=== PATIENT | female | born 2000 | race Caucasian/White ===

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

== ENCOUNTER 2018-03-24 16:48 | Observation (INO) | payer SELFPAY ==
[2018-03-24 17:38] LABS: Appearance CLOUDY (CLEAR); Bilirubin NEGATIVE (NEGATIVE); Blood NEGATIVE Ery/ul (0-5); Glucose NEGATIVE (NEGATIVE); Ketones NEGATIVE (NEGATIVE); Leukocyte Esterase 1+ (NEGATIVE); Nitrite POSITIVE (NEGATIVE); Protein,Urine Dip TRACE (Negative); Urobilinogen NORMAL mg/dL (0-1)
[2018-03-24 17:39] LABS: Bacteria MANY /HPF (NEGATIVE); Epithelial Cells MODERATE /HPF (FEW); RBC 0-2 /HPF (0-2); WBC 15-25 /HPF (0-5)
[2018-03-24 17:49] LABS: Amphetamine,Urine NEGATIVE (NEGATIVE); Barbiturate,Urine NEGATIVE (NEGATIVE); Benzodiazepine,Urine NEGATIVE (NEGATIVE); Cocaine,Urine NEGATIVE (NEGATIVE); Methadone,Urine NEGATIVE (NEGATIVE); Opiate,Urine NEGATIVE (NEGATIVE); PCP,Urine NEGATIVE (NEGATIVE); THC,Urine NEGATIVE (NEGATIVE)
[2018-03-24] MEDS ORDERED: Lactated Ringers 1,000 ML IV ONE (18:03)
[2018-03-24] MEDS ORDERED: ROCEPHIN 1 Gm-D5w 50 ml Bag** 1 G/50 ML IVPB IV ONE (18:13)
[2018-03-24] MEDS: Lactated Ringers 1,000 ML IV SCH (19:40)
[2018-03-24] MEDS ORDERED: BRETHINE 1 MG/ML SQ ONE (20:54)
[2018-03-25] MEDS: Lactated Ringers 1,000 ML IV SCH (03:51)
[2018-03-25 09:05] VITALS: BP 108/57; PULSE 88
[2018-03-25] MEDS ORDERED: ROCEPHIN 1 Gm-D5w 50 ml Bag** 1 G/50 ML IVPB IV SCH (18:04)
== END 2018-03-25 09:00 | disposition home or self-care (01) ==
LOC: ED 16:48 → OB 16:48 → UNDOADMOB 16:54 → OB 16:54 → UNDODISOB 03-25 09:00
PROVIDERS: ADMIT Family Medicine; ATTEND Family Medicine
DX: Z34.90 Encounter for supervision of normal pregnancy, unspecified, unspecified trimester (principal)
CPT/HCPCS: 80307; 81000; 87077; 87086; 87186; G0378; 96372; 99282; J0696

== ENCOUNTER 2018-03-27 12:01 | Observation (INO) | payer MEDICAID ==
[2018-03-27] MEDS ORDERED: Rocephin 1000 MG INJ IM ONE (13:29)
[2018-03-27] MEDS ORDERED: Lactated Ringers 1,000 ML IV SCH (13:30)
[2018-03-27] MEDS ORDERED: XYLOCAINE 1% HCL 20 ML MDV IJ PRN (13:37)
[2018-03-27 15:09] VITALS: BP 124/60; PULSE 85
== END 2018-03-27 15:10 | disposition home or self-care (01) ==
LOC: OB 12:01
PROVIDERS: ADMIT Family Medicine; ATTEND Family Medicine
DX: Z34.83 Encounter for supervision of other normal pregnancy, third trimester (principal)
CPT/HCPCS: 96372; G0378; J0696

== ENCOUNTER 2018-04-07 12:05 | Observation (INO) | payer MEDICAID ==
[2018-04-07] MEDS ORDERED: Sodium Chloride 0.9% 1000 ML 1,000 ML ONE (12:11)
[2018-04-07] MEDS ORDERED: Sodium Chloride 0.9% 1000 ML 1,000 ML IV STA (12:12)
--- NOTE | 2018-04-07 12:19 | ERPHSYRPT ---
- History of Present Illness Time Seen by Provider: 04/07/18 12:12 Source: patient, EMS Physician History: 17-year-old white female brought by medics with complaint that she was out for a walk suddenly passed out patient arrives with complaint of lower abdominal pain. Patient is alert oriented she states that she is 4 para 3 She states she is almost 37 weeks . Past medical history is negative. Patient denies any vaginal bleeding denies chest pain. Timing/Duration: today (just prior to arrival) Severity: moderate Modifying Factors: Improves With: nothing Associated Symptoms: abdominal pain, No nausea, No vomiting, No shortness of breath, No heartburn, No diaphoresis, No chest pain, No fever, No headaches, No malaise, No rash, No syncope, No seizure, No weakness Allergies/Adverse Reactions: No Known Drug Allergies Allergy (Verified 03/24/18 17:37) Home Medications: No Reportable Medications [No Reported Medications] 03/24/18 [History] Hx Tetanus, Diphtheria Vaccination/Date Given: Yes Hx Influenza Vaccination/Date Given: No Hx Pneumococcal Vaccination/Date Given: No - Review of Systems Constitutional: No Fever, No Chills Eyes: No Symptoms Ears, Nose, & Throat: No Symptoms Respiratory: No Cough, No Dyspnea Cardiac: Syncope Abdominal/Gastrointestinal: Abdominal Pain (lower abdominal pain) Genitourinary Symptoms: (37 weeks EGA) Musculoskeletal: No Back Pain, No Neck Pain Skin: No Rash Neurological: No Dizziness, No Focal Weakness, No Sensory Changes Psychological: No Symptoms Endocrine: No Symptoms All Other Systems: Reviewed and Negative - Past Medical History Pertinent Past Medical History: Yes (tonsillectomy, SVD2) Neurological History: No Pertinent History ENT History: No Pertinent History Cardiac History: No Pertinent History Respiratory History: No Pertinent History Endocrine Medical History: No Pertinent History Musculoskeletal History: No Pertinent History GI Medical History: No Pertinent History History: No Pertinent History Psycho-Social History: No Pertinent History Female Reproductive Disorders: No Pertinent History - Past Surgical History Past Surgical History: Yes (tonsillectomy) Neuro Surgical History: No Pertinent History Cardiac: No Pertinent History Respiratory: No Pertinent History Gastrointestinal: No Pertinent History Genitourinary: No Pertinent History Musculoskeletal: No Pertinent History Female Surgical History: No Pertinent History Other Surgical History: Tonisiectomy - Social History Smoking Status: Current every day smoker How long have you smoked: years 2 Exposure to second hand smoke: Yes Drug Use: none Patient Lives Alone: No - Physical Exam General Appearance: other (well developed well nourished white female pale) Eye Exam: PERRL/EOMI, eyes nml inspection Ears, Nose, Throat Exam: normal ENT inspection, TMs normal, pharynx normal, moist mucous membranes Neck Exam: normal inspection, non-tender, supple, full range of motion Respiratory Exam: normal breath sounds, lungs clear, No respiratory distress Cardiovascular Exam: regular rate/rhythm, normal heart sounds, normal peripheral pulses Gastrointestinal/Abdomen Exam: soft, tenderness (lower abdominal pain), distention (gravid abdomen) Back Exam: normal inspection, normal range of motion, No CVA tenderness, No vertebral tenderness Extremity Exam: normal inspection, normal range of motion, pelvis stable Neurologic Exam: alert, oriented x 3, cooperative, metal bumper II-XII nml as tested, normal mood/affect, nml cerebellar function, nml station & gait, sensation nml, No motor deficits Skin Exam: normal color, warm, dry, No rash SpO2 Interpretation: normal - Course Nursing assessment & vital signs reviewed: Yes EKG Interpreted by Me: RATE (89 bpm), Other (EKG: Sinus arrhythmia, 89 bpm, normal axis, no acute ST or T wave changes noted.) Ordered Tests: Active Orders 24 hr Category Date Time Status EKG-ER Only STAT Care 04/07/18 12:12 Active IV Insertion STAT Care 04/07/18 12:12 Active AMYLASE Stat Lab 04/07/18 12:12 Ordered CBC W DIFF Stat Lab 04/07/18 12:12 Ordered CMP Stat Lab 04/07/18 12:12 Ordered LIPASE Stat Lab 04/07/18 12:12 Ordered Medication Summary Generic Name Dose Route Start Last Admin Trade Name Freq PRN Reason Stop Dose Admin Sodium Chloride 1,000 mls @ 999 mls/hr 04/07/18 12:12 Sodium Chloride 0.9% 1000 Ml IV 04/07/18 13:12 .Q1H1M STA - Progress Progress: improved Progress Note: 04/07/18 12:17 This is a 17-year-old white female 4 para 3 with who is 37 weeks estimated gestational age, Patient is brought by medics with complaint of syncopal episode just prior to arrival patient states she was out for a walk and then passed out, On arrival patient is somewhat pale in appearance vitals are stable. Patient is alert oriented 3 HEENT within normal limits neck is supple lungs are clear heart is regular. Abdomen is gravid mild tenderness with palpation lower abdomen patient with cramping. extremities full range of motion pulses equal symmetrical 2 over 4. Neuro the patient alert oriented 3 cranial nerves II through XII intact. Patient with sinus arrhythmia [address] or T wave changes on EKG. Impression 1syncope. 2. 37 weeks EGA patient with abdominal cramping rule out labor. Plan I've discussed case with Dr. Boykin IV has been placed patient has been started on normal saline CBC CMP has been ordered EKG has been obtained. Patient appears stable enough to go to labor and delivery Will transfer patient to labor and delivery. . . - Departure Time of Disposition: 12:19 Departure Disposition: Observation Clinical Impression: , r/o labor Syncope Qualifiers: Syncope type: unspecified Qualified Code(s): R55 - Syncope and collapse Abdominal pain Qualifiers: Abdominal location: lower abdomen, unspecified Qualified Code(s): R10.30 - Lower abdominal pain, unspecified Qualifiers: Weeks of gestation: 37 weeks Qualified Code(s): Z3A.37 - 37 weeks gestation of Condition: Fair Critical Care Time: No Referrals: RASHAD BOYKIN MD [Primary Care Provider] -
[2018-04-07 12:33] LABS: BASOPHIL % 0.1 % (0.0-0.4); Basophil (Absolute #) 0.01 (0-0.4); Eosinophil % 2.2 % (0.00-5.0); Eosinophil (Absolute #) 0.17 (0-0.5); Granulocyte Absolute (ANC) 5.87 (1.4-6.9); Granulocytes % 75.3 % (36.0-66.0); Hematocrit 32.7 % (35-47); Hemoglobin 10.9 gm/dl (12.0-16.0); Lymphocyte (Absolute #) 1.21 (1.0-4.6); Lymphocytes % 15.5 % (24.0-44.0); Mean Cell Volume 90.8 fl (78-100); Mean Corpuscular Hgb Concent. 33.3 g/dl (32-36); Mean Platelet Volume 11.8 fl (6-9.5); Monocyte (Absolute #) 0.54 (0.0-1.3); Monocytes % 6.9 % (0.0-12.0); Platelet Count 165 K/mm3 (150-450); Red Cell Distribution Width 15.2 % (11.5-14.0); White Blood Count 7.8 K/mm3 (4.0-10.5)
[2018-04-07 12:34] LABS: Mean Corpuscular Hemoglobin 30.2 pg (26-32)
[2018-04-07 12:39] VITALS: BP 117/59; PULSE 97
[2018-04-07 12:49] LABS: ALBUMIN 3.5 g/dL (3.5-5.0); ALKALINE PHOSPHATASE 91 U/L (38-126); AMYLASE 57 U/L (30-110); ANION GAP 12.3 MEQ/L (5-15); BLOOD UREA NITROGEN 12 mg/dL (7-17); CHLORIDE 109 mmol/L (98-107); Calcium 8.8 mg/dL (8.4-10.2); Carbon Dioxide 20 mmol/L (22-30); Creatinine 1 0.54 mg/dL (0.52-1.04); Glucose 115 mg/dL (74-106); LIPASE 33 U/L (23-300); Potassium 3.9 mmol/L (3.5-5.1); SGOT/AST 22 U/L (14-36); SGPT/ALT 28 U/L (0-35); SODIUM 137 mmol/L (137-145); Total Protein 6.6 g/dL (6.3-8.2)
== END 2018-04-07 17:00 | disposition home or self-care (01) ==
LOC: ED 12:05 → OB 12:31
PROVIDERS: ADMIT Family Medicine; ATTEND Family Medicine
DX: Z34.83 Encounter for supervision of other normal pregnancy, third trimester (principal)
CPT/HCPCS: 36415; 80053; 82150; 83690; 83986; 85025; 93005; 96360; 99285; G0378

== ENCOUNTER 2018-04-18 18:59 | Observation (INO) | payer MEDICAID ==
[2018-04-18 20:51] LABS: Appearance CLEAR (CLEAR); Bilirubin NEGATIVE (NEGATIVE); Blood NEGATIVE Ery/ul (0-5); Glucose NEGATIVE (NEGATIVE); Ketones NEGATIVE (NEGATIVE); Leukocyte Esterase NEGATIVE (NEGATIVE); Nitrite NEGATIVE (NEGATIVE); Protein,Urine Dip NEGATIVE (Negative); Specific Gravity 1.005 (1.005-1.025); Urobilinogen NORMAL mg/dL (0-1)
[2018-04-18] MEDS ORDERED: Lactated Ringers 1,000 ML IV ONE (22:00)
[2018-04-18] MEDS ORDERED: Lactated Ringers 1,000 ML IV SCH (23:00)
[2018-04-19 00:30] VITALS: BP 115/65; PULSE 72; O2SAT 99
== END 2018-04-19 00:15 | disposition home or self-care (01) ==
LOC: UNDOADMOB 18:59 → OB 18:59 → UNDODISOB 04-19 00:15
PROVIDERS: ADMIT Family Medicine; ATTEND Family Medicine
DX: Z34.83 Encounter for supervision of other normal pregnancy, third trimester (principal)
CPT/HCPCS: 81002; G0378

== ENCOUNTER 2018-04-27 04:39 | Inpatient (IN) | payer OTHER ==
[~2018-04-27 04:39] MED LIST: OMNIPEN 1GM / NaCl 100ML 100 ML IV SCH; OMNIPEN 2 GM / NACL 100ML 100 ML IV ONE; OMNIPEN 2 GM IV SCH; PITOCIN 30 UNITS/ LR 500 ML 500 ML IV SCH; TYLENOL EXTRA STRENGTH 500 MG PO PRN
[2018-04-27 05:43] LABS: Granulocyte Absolute (ANC) 5.17 (1.4-6.9); Hematocrit 33.9 % (35-47); Hemoglobin 11.3 gm/dl (12.0-16.0); Mean Cell Volume 89.7 fl (78-100); Mean Corpuscular Hgb Concent. 33.3 g/dl (32-36); Mean Platelet Volume 12.2 fl (6-9.5); Platelet Count 167 K/mm3 (150-450); Red Blood Count 3.78 M/mm3 (4.1-5.4); Red Cell Distribution Width 15.5 % (11.5-14.0); White Blood Count 7.4 K/mm3 (4.0-10.5)
[2018-04-27 05:54] LABS: Mean Corpuscular Hemoglobin 29.8 pg (26-32)
[2018-04-27] MEDS: Lactated Ringers 1,000 ML IV SCH ×2 (05:55→17:17)
[2018-04-27 06:52] LABS: Amphetamine,Urine NEGATIVE (NEGATIVE); Barbiturate,Urine NEGATIVE (NEGATIVE); Benzodiazepine,Urine NEGATIVE (NEGATIVE); Cocaine,Urine NEGATIVE (NEGATIVE); Methadone,Urine NEGATIVE (NEGATIVE); Opiate,Urine NEGATIVE (NEGATIVE); PCP,Urine NEGATIVE (NEGATIVE); THC,Urine NEGATIVE (NEGATIVE)
[2018-04-27 08:33] LABS: ATYPICAL LYMPHS 1 %; Eosinophil 4 % (0.00-3.0); Lymphocytes 14 % (24-44); Monocyte 3 % (0.0-12.0); Neutrophils 78 % (36.0-66.0); Platelet Estimate NORMAL (NORMAL); Total Cells Counted 100
[2018-04-27 08:34] LABS: ANISOCYTOSIS 1+; Polychromasia RARE
[2018-04-27] MEDS: OMNIPEN 1GM / NaCl 100ML 100 ML IV SCH ×3 (09:53→17:55)
[2018-04-27] MEDS ORDERED: OB EPIDURAL NAROPIN/SUFENTANIL IN NACL EPIDURAL PRN (12:55)
[2018-04-27] MEDS ORDERED: Lactated Ringers 1,000 ML IV ONE (12:55)
[2018-04-27] MEDS ORDERED: Ephedrine Sulfate 50 MG/ML IV PRN (12:55)
[2018-04-27 14:04] VITALS: O2SAT 99
[2018-04-27] MEDS: Colace 100 MG PO SCH (22:00)
[2018-04-27] MEDS ORDERED: LANSINOH 40 GM TOP PRN (22:36)
[2018-04-27] MEDS ORDERED: CORTISONE 1% CREAM TP PRN (22:36)
[2018-04-27] MEDS ORDERED: Ambien 10 MG PO PRN (22:36)
[2018-04-27] MEDS ORDERED: Mylicon 80MG PO PRN (22:36)
[2018-04-27] MEDS ORDERED: NORCO 5/325 MG PO PRN (22:36)
[2018-04-27] MEDS ORDERED: TUCKS TP PRN (22:36)
[2018-04-27] MEDS ORDERED: Dermoplast Spray ONE (22:42)
[2018-04-27] MEDS: MOTRIN 400 MG PO PRN (22:45)
[2018-04-27] MEDS ORDERED: Dermoplast Spray TP PRN (22:46)
[2018-04-28] MEDS: MOTRIN 400 MG PO PRN ×2 (05:33→13:51)
[2018-04-28 06:25] LABS: BASOPHIL % 0.3 % (0.0-0.4); Basophil (Absolute #) 0.02 (0-0.4); Eosinophil % 3.2 % (0.00-5.0); Eosinophil (Absolute #) 0.22 (0-0.5); Granulocyte Absolute (ANC) 4.45 (1.4-6.9); Granulocytes % 65.7 % (36.0-66.0); Hematocrit 28.5 % (35-47); Hemoglobin 9.3 gm/dl (12.0-16.0); Lymphocyte (Absolute #) 1.25 (1.0-4.6); Lymphocytes % 18.4 % (24.0-44.0); Mean Cell Volume 91.6 fl (78-100); Mean Corpuscular Hemoglobin 29.9 pg (26-32); Mean Corpuscular Hgb Concent. 32.6 g/dl (32-36); Mean Platelet Volume 12.7 fl (6-9.5); Monocyte (Absolute #) 0.84 (0.0-1.3); Monocytes % 12.4 % (0.0-12.0); Platelet Count 139 K/mm3 (150-450); Red Blood Count 3.11 M/mm3 (4.1-5.4); Red Cell Distribution Width 15.5 % (11.5-14.0); White Blood Count 6.8 K/mm3 (4.0-10.5)
[2018-04-28] MEDS: FERREX 150 PO SCH (13:51)
[2018-04-28] MEDS: Colace 100 MG PO SCH (13:51)
[2018-04-29] MEDS: FERREX 150 PO SCH (09:50)
[2018-04-29] MEDS: Colace 100 MG PO SCH (09:50)
--- NOTE | 2018-04-29 12:03 | PCM.DS ---
Discharge Summary Date of Admission: 04/27/18 12:16 Admitting Physician: RASHAD BOYKIN Consults: Consults on Case 04/27/18 12:56 Notify Anesthesia Provider PRN 04/27/18 22:36 Notify Physician ROUTINE Primary Care Provider: RASHAD BOYKIN Allergies Allergies No Known Drug Allergies Allergy (Verified 04/27/18 06:22) Hospital Summary - Hospital Course Hospital Course: patient had elective induction at 39 wks, delivered a viable male . no complications. - Vitals & Intake/Output Vital Signs: Vital Signs Temperature 98.1 F 04/29/18 08:00 Pulse Rate 86 04/29/18 08:00 Respiratory Rate 20 04/29/18 08:00 Blood Pressure 119/66 04/29/18 08:00 O2 Sat by Pulse Oximetry 99 04/27/18 13:30 Oxygen-Last Documented O2 Percentage 100% Intake & Output: Intake & Output 04/27/18 04/28/18 04/29/18 04/30/18 11:59 11:59 11:59 11:59 Intake Total 4567 1200 Output Total 2000 Balance 2567 1200 Weight 82.1 kg - Lab Result Diagrams: 04/28/18 05:16 Micro Results-Entire Visit: Microbiology 04/27/18 15:30 Urine Culture - Final Catherized NO GROWTH Discharge Exam General Appearance: no apparent distress, alert Respiratory Exam: normal breath sounds, lungs clear, No respiratory distress Cardiovascular Exam: regular rate/rhythm, normal heart sounds Gastrointestinal/Abdomen Exam: soft, No tenderness, No mass Extremity Exam: normal inspection, normal range of motion Final Diagnosis/Problem List - Final Discharge Diagnosis/Problem (1) Vaginal delivery Current Visit: No Status: Acute - Discharge Disposition: Home, Self-Care Condition: Stable Prescriptions: No Action No Reportable Medications [No Reported Medications] Follow up with: RASHAD BOYKIN MD [Primary Care Provider] - 1 Week
[2018-04-29] MEDS: MOTRIN 400 MG PO PRN (12:26)
[2018-04-29 13:50] VITALS: BP 135/69; PULSE 91
== END 2018-04-29 13:30 | disposition home or self-care (01) | DRG 775 ==
LOC: OB 04:39 → OBSVTOIN 12:16
PROVIDERS: ADMIT Family Medicine; ATTEND Family Medicine
PROC: 10E0XZZ Delivery of Products of Conception, External Approach (ICD-10-PCS; principal; 2018-04-27)
DX: O80 Encounter for full-term uncomplicated delivery (principal); Z3A.39 39 weeks gestation of pregnancy; Z37.0 Single live birth
CPT/HCPCS: 36415; 80307; 81003; 85025; 87086; G0378; J0290; J2590; J2795; A9270-GY

== ENCOUNTER 2018-07-02 23:02 | Emergency (ER) | payer OTHER ==
[2018-07-02] MEDS ORDERED: Zofran 4 MG/2 ML VIAL IV ONE (23:54)
[2018-07-02] MEDS ORDERED: Sodium Chloride 0.9% 1000 ML 1,000 ML IV STA (23:54)
[2018-07-03] MEDS ORDERED: SUBLIMAZE 100 MCG/2 ML IV ONE (00:06)
[2018-07-03] MEDS ORDERED: Zofran 4 MG/2 ML VIAL ONE (00:06)
[2018-07-03] MEDS ORDERED: Sodium Chloride 0.9% 1000 ML 1,000 ML ONE (00:06)
[2018-07-03] MEDS ORDERED: PROTONIX 40 MG IV IV ONE ×2 (00:11→00:35)
--- NOTE | 2018-07-03 00:11 | ERPHSYRPT ---
- History of Present Illness Time Seen by Provider: 07/02/18 23:35 Historian: patient Exam Limitations: clinical condition Patient Subjective Stated Complaint: pt states she began having abd pain half and hour to an hour after eating supper. Triage Nursing Assessment: pt alert and oriented, answers questions approp. pt ambulatory with steady gait noted. respirations nonlabored with lungs cta. pt tearful at times, holding abd. abd soft, nontender to light palpation. bowel sounds present x4. Physician History: PATIENT COMPLAINS OF EPIGASTRIC PAINS AFTER EATING DINNER 3 HOURS AGO. HAS ASSOCIATED NAUSEA. DENIES EMESIS, FEVER, URINARY SYMPTOMS Timing/Duration: today Activities at Onset: other (AFTER EATING STEAK) Quality: sharpness, stabbing Abdominal Pain Onset Location: epigastric Pain Radiation: no radiation Severity of Pain-Max: moderate Severity of Pain-Current: moderate Modifying Factors: Improves With: eating Associated Symptoms: denies symptoms Previous symptoms: no prior history Allergies/Adverse Reactions: No Known Drug Allergies Allergy (Verified 07/02/18 23:34) Hx Tetanus, Diphtheria Vaccination/Date Given: Yes Hx Influenza Vaccination/Date Given: No Hx Pneumococcal Vaccination/Date Given: No Immunizations Up to Date: Yes - Review of Systems Constitutional: No Fever, No Chills Eyes: No Symptoms Ears, Nose, & Throat: No Symptoms Respiratory: No Symptoms, No Cough, No Dyspnea Cardiac: No Chest Pain, No Edema, No Syncope Abdominal/Gastrointestinal: Abdominal Pain, No Nausea, No Vomiting, No Diarrhea Genitourinary Symptoms: No Symptoms, No Dysuria Musculoskeletal: No Symptoms, No Back Pain, No Neck Pain Skin: No Rash Neurological: No Dizziness, No Focal Weakness, No Sensory Changes Psychological: No Symptoms Endocrine: No Symptoms All Other Systems: Reviewed and Negative - Past Medical History Pertinent Past Medical History: No (tonsillectomy, SVD2) Neurological History: No Pertinent History ENT History: No Pertinent History Cardiac History: No Pertinent History Respiratory History: No Pertinent History Endocrine Medical History: No Pertinent History Musculoskeletal History: No Pertinent History GI Medical History: No Pertinent History History: No Pertinent History Psycho-Social History: No Pertinent History Female Reproductive Disorders: No Pertinent History - Past Surgical History Past Surgical History: Yes (tonsillectomy) Neuro Surgical History: No Pertinent History Cardiac: No Pertinent History Respiratory: No Pertinent History Gastrointestinal: No Pertinent History Genitourinary: No Pertinent History Musculoskeletal: No Pertinent History Female Surgical History: No Pertinent History Other Surgical History: Tonisiectomy - Social History Smoking Status: Current every day smoker How long have you smoked: 4yrs Exposure to second hand smoke: Yes Drug Use: none Patient Lives Alone: No - Female History Hx Last Menstrual Period: current Hx Now: No - Nursing Vital Signs Nursing Vital Signs: Initial Vital Signs Temperature 98.3 F 07/02/18 23:25 Pulse Rate 74 07/02/18 23:25 Respiratory Rate 20 07/02/18 23:25 Blood Pressure 139/84 07/02/18 23:25 O2 Sat by Pulse Oximetry 99 07/02/18 23:25 Pain Scale Pain Intensity 8 - Physical Exam General Appearance: mild distress Eye Exam: PERRL/EOMI, eyes nml inspection Ears, Nose, Throat Exam: normal ENT inspection, pharynx normal, moist mucous membranes Neck Exam: normal inspection, non-tender, supple, full range of motion Respiratory Exam: normal breath sounds, lungs clear, No respiratory distress Cardiovascular Exam: regular rate/rhythm, normal heart sounds Gastrointestinal/Abdomen Exam: soft, normal bowel sounds, No tenderness ( EPIGASTRIC AND RUQ TENDERNESS), No mass Back Exam: normal inspection, normal range of motion, No CVA tenderness, No vertebral tenderness Extremity Exam: normal inspection, normal range of motion, pelvis stable Neurologic Exam: alert, oriented x 3, cooperative, normal mood/affect, nml cerebellar function, sensation nml, No motor deficits Skin Exam: normal color, warm, dry SpO2: 99 Oxygen Delivery: Room Air Ordered Tests: Active Orders 24 hr Category Date Time Status Clean Catch Urine Specimen STAT Care 07/02/18 23:54 Active IV Insertion STAT Care 07/02/18 23:54 Active ABDOMEN AND PELVIS W CONTRAST [CT] Stat Exams 07/02/18 23:55 Ordered AMYLASE Stat Lab 07/02/18 23:54 Ordered CBC W DIFF Stat Lab 07/02/18 23:54 Ordered CMP Stat Lab 07/02/18 23:54 Ordered HCG,QUALITATIVE URINE Stat Lab 07/03/18 00:01 Ordered LIPASE Stat Lab 07/02/18 23:54 Ordered UA W/RFX UR CULTURE Stat Lab 07/03/18 00:01 Ordered Medication Summary Generic Name Dose Route Start Last Admin Trade Name Freq PRN Reason Stop Dose Admin Sodium Chloride 1,000 mls @ 500 mls/hr 07/02/18 23:54 07/03/18 00:07 Sodium Chloride 0.9% 1000 Ml IV 07/03/18 01:53 500 mls/hr .Q2H STA Administration Discontinued Medications Generic Name Dose Route Start Last Admin Trade Name [place] PRN Reason Stop Dose Admin Fentanyl Citrate 100 mcg 07/03/18 00:06 Sublimaze 100 Mcg/2 Ml IV 07/03/18 00:07 STAT ONE Fentanyl Citrate Confirm 07/03/18 00:16 Sublimaze 100 Mcg/2 Ml Administered 07/03/18 00:17 Dose 100 mcg .ROUTE .STK-MED ONE Sodium Chloride Confirm 07/03/18 00:06 Sodium Chloride 0.9% 1000 Ml Administered 07/03/18 00:07 Dose 1,000 mls @ ud .ROUTE .STK-MED ONE Ondansetron HCl 4 mg 07/02/18 23:54 07/03/18 00:07 Zofran 4 Mg/2 Ml Vial IV 07/02/18 23:55 4 mg STAT ONE Administration Ondansetron HCl Confirm 07/03/18 00:06 Zofran 4 Mg/2 Ml Vial Administered 07/03/18 00:07 Dose 4 mg .ROUTE .STK-MED ONE Pantoprazole Sodium 40 mg 07/03/18 00:11 Protonix 40 Mg Iv IV 07/03/18 00:12 STAT ONE - Progress Progress Note: 07/03/18 00:10 IV NORMAL SALINE 500ML/HR, ZOFRAN 4MG, FENTANYL 0.1MG IV Counseled pt/family regarding: lab results, diagnosis, need for follow-up, rad results - Departure Time of Disposition: 00:24 Departure Disposition: Home Clinical Impression: PLEURISY, ACUTE ABDOMINAL PAIN, SUBSTANCE ABUSE Condition: Stable Critical Care Time: No Referrals: RASHAD BOYKIN MD [Primary Care Provider] - Additional Instructions: TORADOL 10MG EVERY 6 HOURS NEEDED FOR PAIN, PEPCID 20MG TWICE DAILY FOR 2 WEEKS. ZOFRAN 4MG EVERY 6 HOURS FOR NAUSEA. BEGAN A CLEAR LIQUID DIET FOR 24 HOURS THEN ADVANCE DIET TOLERATED. CONSULT YOUR PRIMARY CARE PROVIDER FOR FOLLOWUP IN 1 WEEK. RETURN TO EMERGENCY FOR INCREASING PAIN. Prescriptions: Ketorolac Tromethamine [Toradol] 10 mg PO Q6H PRN PRN #20 tablet PRN Reason: Pain Ondansetron ODT 4 MG [Zofran Odt 4 mg] 4 mg PO Q6H PRN PRN #6 tab.rapdis PRN Reason: Nausea Famotidine 20 mg [Pepcid 20 MG] 20 mg PO BID #30 tablet
[2018-07-03] MEDS ORDERED: SUBLIMAZE 100 MCG/2 ML ONE (00:16)
[2018-07-03 00:52] LABS: BASOPHIL % 0.2 % (0.0-0.4); Basophil (Absolute #) 0.02 (0-0.4); Eosinophil % 3.6 % (0.00-5.0); Granulocyte Absolute (ANC) 4.66 (1.4-6.9); Granulocytes % 56.2 % (36.0-66.0); Hematocrit 34.5 % (35-47); Hemoglobin 11.1 gm/dl (12.0-16.0); Lymphocyte (Absolute #) 2.23 (1.0-4.6); Lymphocytes % 26.8 % (24.0-44.0); Mean Corpuscular Hgb Concent. 32.2 g/dl (32-36); Mean Platelet Volume 10.7 fl (6-9.5); Monocytes % 13.2 % (0.0-12.0); Platelet Count 189 K/mm3 (150-450); Red Blood Count 3.63 M/mm3 (4.1-5.4); Red Cell Distribution Width 14.2 % (11.5-14.0); White Blood Count 8.3 K/mm3 (4.0-10.5)
[2018-07-03 00:59] LABS: Mean Corpuscular Hemoglobin 30.5 pg (26-32)
[2018-07-03 01:10] LABS: ALBUMIN 3.7 g/dL (3.5-5.0); ALKALINE PHOSPHATASE 45 U/L (38-126); AMYLASE 60 U/L (30-110); ANION GAP 12.3 MEQ/L (5-15); BLOOD UREA NITROGEN 23 mg/dL (7-17); CHLORIDE 109 mmol/L (98-107); Calcium 8.7 mg/dL (8.4-10.2); Carbon Dioxide 22 mmol/L (22-30); Creatinine 1 0.61 mg/dL (0.52-1.04); Glucose 83 mg/dL (74-106); LIPASE 97 U/L (23-300); Potassium 4.6 mmol/L (3.5-5.1); SGOT/AST 20 U/L (14-36); SGPT/ALT 37 U/L (0-35); SODIUM 139 mmol/L (137-145); Total Protein 6.7 g/dL (6.3-8.2)
[2018-07-03 01:15] LABS: Appearance SLIGHTLY CLOUDY (CLEAR)
[2018-07-03 01:16] LABS: Bilirubin NEGATIVE (NEGATIVE); Blood SMALL Ery/ul (0-5); Glucose NEGATIVE (NEGATIVE); Ketones NEGATIVE (NEGATIVE); Leukocyte Esterase NEGATIVE (NEGATIVE); Nitrite POSITIVE (NEGATIVE); Protein,Urine Dip NEGATIVE (Negative); Specific Gravity 1.025 (1.005-1.025); Urobilinogen NORMAL mg/dL (0-1)
[2018-07-03] MEDS ORDERED: ROCEPHIN 1 Gm-D5w 50 ml Bag** 1 G/50 ML IVPB IV ONE ×2 (01:46→01:52)
[2018-07-03 02:02] VITALS: O2SAT 99
[2018-07-03 03:42] VITALS: BP 112/65; PULSE 68
--- NOTE | 2018-07-03 09:11 | XRAY ---
Indication: Epigastric pain. Multiple contiguous axial images obtained through the abdomen and pelvis using 80 cc Isovue 370 contrast only. Comparison: None Lung bases demonstrates mild bibasilar dependent atelectasis. There are at least 4 left lung noncalcified nodules and at least one in the right posterior lower lobe. Largest nodule left lower lobe measuring 15 mm. Findings possibly granulomatous in this demographic. Metastasis not completely excluded the right clinical setting. Heart is not enlarged. Stomach is distended with food/fluid. Noncontrasted stomach and bowel loops appear nonobstructed. Normal appendix. Mild/moderate diffuse scattered colonic fecal debris throughout. Abnormal distended gallbladder with tiny intraluminal cholesterol stones, wall thickening, and pericholecystic fluid favoring cholecystitis. Remaining liver, pancreas, spleen, adrenal glands, kidneys, ureters, and bladder appear unremarkable. Uterus demonstrates IUD in situ. Aorta is normal in course and caliber. No AAA or pathologic retroperitoneal lymphadenopathy. Osseous structures intact. Impression: 1. Abnormal distended gallbladder with cholesterol stones, wall thickening, and pericholecystic fluid favoring cholecystitis. Gallbladder sonogram may yield further information. 2. Fecal stasis without obstruction. 3. Bilateral noncalcified pulmonary nodules possibly granulomatous in the stenographic. Metastasis not completely excluded in the right clinical setting. Comment: Preliminary interpretation was made by [facility]. No critical discrepancy. CT DI 15.59
== END 2018-07-03 03:20 | disposition home or self-care (01) ==
LOC: ED 23:02
DX: K80.50 Calculus of bile duct without cholangitis or cholecystitis without obstruction (principal); K80.20 Calculus of gallbladder without cholecystitis without obstruction; N39.0 Urinary tract infection, site not specified; R09.1 Pleurisy; R10.13 Epigastric pain; F19.10 Other psychoactive substance abuse, uncomplicated
CPT/HCPCS: 36000; 36415; 74177; 80053; 81001; 82150; 83690; 84703; 85025; 87077; 87086; 87186; 96360; 96361; 96365; 96374; 96375; 99284; J0696; J2405; J3010

== ENCOUNTER 2018-12-18 09:27 | Day surgery (SDC) | payer OTHER ==
--- NOTE | 2018-12-18 08:18 | HP ---
DATE OF SURGERY: 12/18/2018 HISTORY OF PRESENT ILLNESS: The patient is a 18 year-old with chest tightness after eating out. No nausea or vomiting. No jaundice. No change in bowel movements. She had a CT scan show cholelithiasis. I feel she has symptomatic cholelithiasis, chronic cholecystitis. I felt she would benefit from cholecystectomy. PAST MEDICAL HISTORY: Tonsillectomy. PAST SURGICAL HISTORY: She denies any chronic illnesses. MEDICATIONS: None. ALLERGIES: NKDA. FAMILY HISTORY: Negative. SOCIAL HISTORY: Half pack per day smoker, denies alcohol abuse. REVIEW OF SYSTEMS: Twelve systems reviewed. No chest pain or palpitations other systems negative or noncontributory as above and per preadmission questionnaire. PHYSICAL EXAMINATION: GENERAL: No acute distress. HEENT: Sclerae nonicteric. NECK: No JVD. CHEST: Equal excursion, nonlabored breathing. CVS: Regular rate and rhythm. ABDOMEN: Soft. No peritoneal signs. EXTREMITIES: No significant edema. NEURO: Alert, oriented, moving extremities symmetrically. No gross motor deficits noted. RECTAL: Deferred timed to endoscopy exam. IMPRESSION: Symptomatic biliary colic, chronic cholecystitis, symptomatic cholecystitis. I feel the patient would benefit from cholecystectomy. She was shown the gallbladder pamphlet and risk sheet, explained the detail including but not limited to bleeding or infection, risk of trocar injury or hernia, small risk of bowel, bladder or blood vessel injury, small risk of bile leak, bile duct injury, retained stone or sludge possibly requiring further procedure either open or ERCP, general risk of anesthesia, deep venous thrombosis, pulmonary embolism, pneumonia, perioperative risk of aches, pains, bloating, constipation and/or loose stools possibly even chronic in nature. She understands and agrees to the planned procedure, will proceed with laparoscopic cholecystectomy with possible open as an outpatient.
[~2018-12-18 09:27] MED LIST changes: +Lactated Ringers 1,000 ML IV ONE; +Lactated Ringers 1,000 ML IV SCH; +MEFOXIN 2 GM PREMIX** 2 GM/50 ML ML IV ONE; -OMNIPEN 1GM / NaCl 100ML 100 ML IV SCH; -OMNIPEN 2 GM / NACL 100ML 100 ML IV ONE; -OMNIPEN 2 GM IV SCH; -PITOCIN 30 UNITS/ LR 500 ML 500 ML IV SCH; +Sensorcaine 0.25% 10 ML ONE; -TYLENOL EXTRA STRENGTH 500 MG PO PRN
[2018-12-18] MEDS ORDERED: TORAdol 30 mg Injection IV ONE (09:28)
[2018-12-18] MEDS ORDERED: Decadron 4 MG INJ IV ONE (09:28)
[2018-12-18] MEDS ORDERED: Zofran 4 MG/2 ML VIAL IV ONE (09:28)
[2018-12-18] MEDS ORDERED: Quelicin Fliptop 200 MG/10 ML IV ONE (09:28)
[2018-12-18] MEDS ORDERED: Zemuron 100 MG/10 ML IV ONE (09:28)
[2018-12-18] MEDS ORDERED: BRIDION 200MG/2ML IV ONE (09:28)
[2018-12-18] MEDS ORDERED: DILAUDID 2 MG INJECTION IV ONE (09:28)
[2018-12-18] MEDS ORDERED: SUBLIMAZE 100 MCG/2 ML IV ONE (09:28)
[2018-12-18] MEDS ORDERED: DIPRIVAN 200 MG/20 ML IV ONE (09:28)
[2018-12-18] MEDS ORDERED: Lactated Ringers 1,000 ML IV ONE (13:55)
[2018-12-18] MEDS ORDERED: SUBLIMAZE 100 MCG/2 ML ONE (14:08)
[2018-12-18] MEDS ORDERED: DILAUDID 2 MG INJECTION ONE (14:08)
--- NOTE | 2018-12-18 15:07 | OP ---
SURGERY DATE/TIME: 12/18/2018 1240 PREOPERATIVE DIAGNOSIS: Symptomatic cholelithiasis, chronic cholecystitis. POSTOPERATIVE DIAGNOSIS: Symptomatic cholelithiasis, chronic cholecystitis. PROCEDURE: Laparoscopic cholecystectomy. SURGEON: Dr. Sidney Pérez. ANESTHESIA: General. ESTIMATED BLOOD LOSS: Minimal. INDICATIONS: As noted above. Risks and benefits explained in detail but not limited to and consent obtained. DESCRIPTION OF PROCEDURE AND FINDINGS: The patient taken to the OR. General anesthesia induced. Abdomen prepped and draped in the usual sterile fashion. After official time out and no disagreement with planned procedure, a transverse incision made. Fascia grasped and pulled upward. Veress needle inserted and tested with saline. Pneumoperitoneum accomplished insufflating opening pressure of 0-15. An 11 mm bladeless port and camera inserted without difficulty followed by two - 5 mm right upper quadrant ports and 11 mm epigastric port. The gallbladder grasped retracted over the edge of the liver. It was quite a long gallbladder, a little floppy mesentery. Cystic duct infundibular junction slowly and carefully well skeletonized until the critical view obtained both anteriorly and posteriorly. It should be noted the cystic artery was actually coming out laterally and coming across anterior to the cystic duct, this required separation prior to clipping and dividing the pulsatile artery and lymph node beside it. Slowly and carefully cystic duct infundibular junction slowly and carefully well skeletonized until critical view obtained both anterior and posteriorly. Once this was accomplished cystic duct then clipped x3 and divided in usual fashion. Gallbladder slowly and carefully dissected free. It was very vascular and extensive inflammatory reaction requiring additional oozing side branches going into the Rizvi's pouch area as well as up towards the anterior edge of the liver, this took some time but was slowly and carefully accomplished again staying directly on the gallbladder wall. Just prior to releasing from final attachments to the anterior edge of the liver, the liver bed re-inspected. Clips noted to be place on cystic duct and cystic artery stumps. There were no signs of any active bleeding or bile leakage. It was felt there was no benefit from drain placement. Gallbladder released from final attachments to the anterior edge of the liver, placed in Pleatman sac and pulled up, decompressed of bile, some stones were grasped to allow it to be pulled up and pulled free. The gallbladder was distended and did split the skin a little bit on top of the skin. Gallbladder in Pleatman sac and passed off. Port replaced. Copious amount of irrigation accomplished lateral to the liver and subhepatic space irrigating until clear. Liver bed re-inspected. Clips noted in place in cystic duct and cystic artery stumps. There were no signs of any active bleeding or bile leakage. It was felt there was no benefit ROSIE drain placement. At this point skin and fascial defects anesthetized with 0.25% Marcaine local. Fascial defect 06/01 site closed with puncture closure device with #1 Vicryl under direct vision of the camera. Pneumoperitoneum decompressed. The wound was irrigated out. Skin incision closed with 4-0 Vicryl. Steri-Strips and sterile dressing applied. The patient tolerated the procedure well. There were no immediate complications. Findings discussed with the family out in the waiting area. Transferred to the recovery room in stable condition.
[2018-12-18 15:17] VITALS: BP 136/86; PULSE 89; O2SAT 99
== END 2018-12-18 15:25 | disposition home or self-care (01) ==
LOC: SDC 09:27
PROVIDERS: ATTEND Surgery
DX: K80.10 Calculus of gallbladder with chronic cholecystitis without obstruction (principal)
CPT/HCPCS: 84703; J0330; J0694; J1100; J1170; J1885; J2405; J2704; J3010

== ENCOUNTER 2019-07-29 12:37 | Emergency (ER) | payer MEDICAID, OTHER ==
[2019-07-29] MEDS ORDERED: Sodium Chloride 0.9% 1000 ML 1,000 ML IV STA (13:03)
[2019-07-29] MEDS ORDERED: TORAdol 30 mg Injection IV ONE (13:03)
--- NOTE | 2019-07-29 13:03 | ERPHSYRPT ---
- History of Present Illness Time Seen by Provider: 07/29/19 13:03 Historian: patient Exam Limitations: no limitations Physician History: 18 y/o white female presents with right upper quad abd pain and right flank pain that began approx 1 week ago. pt has had a cholecystectomy in past. pt has h/o of hep c and liver disease. pt cannot have any narcotics. no n/v/d. no abnl vag discharge Timing/Duration: week(s) (1) Activities at Onset: none Quality: aching Abdominal Pain Onset Location: RUQ Pain Radiation: flank (right mild) Severity of Pain-Max: mild Severity of Pain-Current: mild Modifying Factors: Improves With: nothing Associated Symptoms: No diarrhea, No loss of appetite, No nausea Previous symptoms: no prior history Allergies/Adverse Reactions: No Known Drug Allergies Allergy (Verified 07/29/19 13:03) Hx Tetanus, Diphtheria Vaccination/Date Given: Yes Hx Influenza Vaccination/Date Given: No Hx Pneumococcal Vaccination/Date Given: No - Review of Systems Constitutional: No Symptoms Eyes: No Symptoms Ears, Nose, & Throat: No Symptoms Respiratory: No Symptoms Cardiac: No Symptoms Abdominal/Gastrointestinal: Abdominal Pain (ruq), No Nausea, No Vomiting, No Diarrhea Genitourinary Symptoms: No Symptoms Musculoskeletal: No Symptoms Skin: No Symptoms Neurological: No Symptoms Psychological: No Symptoms Endocrine: No Symptoms Hematologic/Lymphatic: No Symptoms Immunological/Allergic: No Symptoms All Other Systems: Reviewed and Negative - Past Medical History Pertinent Past Medical History: No (tonsillectomy, SVD2) Neurological History: No Pertinent History ENT History: No Pertinent History Cardiac History: No Pertinent History Respiratory History: No Pertinent History Endocrine Medical History: No Pertinent History Musculoskeletal History: No Pertinent History GI Medical History: No Pertinent History History: No Pertinent History Psycho-Social History: No Pertinent History Female Reproductive Disorders: No Pertinent History - Past Surgical History Past Surgical History: Yes (tonsillectomy) Neuro Surgical History: No Pertinent History Cardiac: No Pertinent History Respiratory: No Pertinent History Gastrointestinal: No Pertinent History Genitourinary: No Pertinent History Musculoskeletal: No Pertinent History Female Surgical History: No Pertinent History Other Surgical History: Toniliectomy - Social History Smoking Status: Current every day smoker How long have you smoked: 4yrs Exposure to second hand smoke: Yes Drug Use: none Patient Lives Alone: No - Nursing Vital Signs Nursing Vital Signs: Initial Vital Signs Temperature 97.9 F 07/29/19 12:42 Pulse Rate 97 H 07/29/19 12:42 Respiratory Rate 18 07/29/19 12:42 Blood Pressure 125/66 07/29/19 12:42 O2 Sat by Pulse Oximetry 100 07/29/19 12:42 Pain Scale Pain Intensity 0 - Physical Exam General Appearance: no apparent distress, alert, anxiety Eye Exam: PERRL/EOMI, eyes nml inspection Ears, Nose, Throat Exam: normal ENT inspection, moist mucous membranes Neck Exam: normal inspection, non-tender, supple, full range of motion Respiratory Exam: normal breath sounds, lungs clear, airway intact, No chest tenderness, No respiratory distress Cardiovascular Exam: regular rate/rhythm, normal heart sounds, normal peripheral pulses Gastrointestinal/Abdomen Exam: soft, normal bowel sounds, tenderness (ruq), No guarding, No rebound Pelvic Exam: not done Rectal Exam: not done Back Exam: normal inspection, normal range of motion, No CVA tenderness, No vertebral tenderness Extremity Exam: normal inspection, normal range of motion, pelvis stable Neurologic Exam: alert, oriented x 3, cooperative, 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 Skin Exam: normal color, warm, dry Lymphatic Exam: No adenopathy SpO2 Interpretation: normal O2 Delivery: Room Air - Course Nursing assessment & vital signs reviewed: Yes Ordered Tests: Active Orders 24 hr Category Date Time Status Clean Catch Urine Specimen STAT Care 07/29/19 13:06 Active IV Insertion STAT Care 07/29/19 13:02 Active ABDOMEN AND PELVIS W/0 CONTRAS [CT] Stat Exams 07/29/19 13:04 Taken AMYLASE Stat Lab 07/29/19 13:15 Completed CBC W DIFF Stat Lab 07/29/19 13:15 Completed CMP Stat Lab 07/29/19 13:15 Completed CULTURE,URINE Stat Lab 07/29/19 13:15 Received HCG,QUALITATIVE URINE Stat Lab 07/29/19 13:15 Completed LIPASE Stat Lab 07/29/19 13:15 Completed Lactic Acid Stat Lab 07/29/19 13:03 Completed UA W/RFX UR CULTURE Stat Lab 07/29/19 13:15 Completed Urine Triage Profile Stat Lab 07/29/19 13:15 Completed Medication Summary Discontinued Medications Generic Name Dose Route Start Last Admin Trade Name Freq PRN Reason Stop Dose Admin Sodium Chloride 1,000 mls @ 999 mls/hr 07/29/19 13:03 07/29/19 14:15 Sodium Chloride 0.9% 1000 Ml IV 07/29/19 14:03 Infused .Q1H1M STA Infusion Sodium Chloride Confirm 07/29/19 13:08 Sodium Chloride 0.9% 1000 Ml Administered 07/29/19 13:09 Dose 1,000 mls @ ud .ROUTE .STK-MED ONE Ketorolac Tromethamine 30 mg 07/29/19 13:03 07/29/19 13:21 Toradol 30 Mg Injection IV 07/29/19 13:04 30 mg STAT ONE Administration Ketorolac Tromethamine Confirm 07/29/19 13:08 Toradol 30 Mg Injection Administered 07/29/19 13:09 Dose 30 mg .ROUTE .STK-MED ONE Lab/Rad Data: Laboratory Result Diagrams 07/29/19 13:15 07/29/19 13:15 Laboratory Results 07/29/19 07/29/19 07/29/19 Range/Units 13:15 13:15 13:15 WBC (4.0-10.5) K/mm3 RBC (4.1-5.4) M/mm3 Hgb (12.0-16.0) gm/dl Hct (35-47) % MCV (78-100) fl MCH (26-32) pg MCHC (32-36) g/dl RDW (11.5-14.0) % Plt Count (150-450) K/mm3 MPV (6-9.5) fl Gran % (36.0-66.0) % Eos # (Auto) (0-0.5) Absolute Lymphs (auto) (1.0-4.6) Absolute Monos (auto) (0.0-1.3) Lymphocytes % (24.0-44.0) % Monocytes % (0.0-12.0) % Eosinophils % (0.00-5.0) % Basophils % (0.0-0.4) % Absolute Granulocytes (1.4-6.9) Basophils # (0-0.4) Sodium (137-145) mmol/L Potassium (3.5-5.1) mmol/L Chloride (98-107) mmol/L Carbon Dioxide (22-30) mmol/L Anion Gap (5-15) MEQ/L BUN (7-17) mg/dL Creatinine (0.52-1.04) mg/dL Estimated GFR ML/MIN Glucose (74-106) mg/dL Lactic Acid (0.4-2.0) Calcium (8.4-10.2) mg/dL Total Bilirubin (0.2-1.3) mg/dL AST (14-36) U/L ALT (0-35) U/L Alkaline Phosphatase (38-126) U/L Serum Total Protein (6.3-8.2) g/dL Albumin (3.5-5.0) g/dL Amylase (30-110) U/L Lipase (23-300) U/L Urine Color YELLOW (YELLOW) Urine Appearance SLIGHTLY CLOUDY (CLEAR) Urine pH 8.0 (5-6) Ur Specific [place] 1.012 (1.005-1.025) Urine Protein NEGATIVE (Negative) Urine Ketones NEGATIVE (NEGATIVE) Urine Blood MODERATE (0-5) Vinny/ul Urine Nitrite NEGATIVE (NEGATIVE) Urine Bilirubin NEGATIVE (NEGATIVE) Urine Urobilinogen NEGATIVE (0-1) mg/dL Ur Leukocyte Esterase SMALL (NEGATIVE) Urine WBC (Auto) 26-50 (0-5) /HPF Urine RBC (Auto) 16-25 (0-2) /HPF U Epithel Cells (Auto) RARE (FEW) /HPF Urine Bacteria (Auto) MODERATE (NEGATIVE) /HPF Urine Mucus (Auto) SLIGHT (NEGATIVE) /HPF Urine Culture Reflexed YES (NO) Urine Glucose NEGATIVE (NEGATIVE) mg/dL Urine HCG, Qual NEGATIVE (Negative) Urine Opiates Level NEGATIVE (NEGATIVE) Ur Methadone NEGATIVE (NEGATIVE) Urine Barbiturates NEGATIVE (NEGATIVE) Ur Phencyclidine (PCP) NEGATIVE (NEGATIVE) Urine Amphetamine NEGATIVE (NEGATIVE) U Benzodiazepine Level NEGATIVE (NEGATIVE) Urine Cocaine NEGATIVE (NEGATIVE) Urine Marijuana (THC) NEGATIVE (NEGATIVE) 07/29/19 07/29/19 07/29/19 Range/Units 13:15 13:15 13:03 WBC 8.3 (4.0-10.5) K/mm3 RBC 3.94 L (4.1-5.4) M/mm3 Hgb 12.9 (12.0-16.0) gm/dl Hct 40.2 (35-47) % MCV 102.0 H (78-100) fl MCH 32.7 H (26-32) pg MCHC 32.1 (32-36) g/dl RDW 12.1 (11.5-14.0) % Plt Count 247 (150-450) K/mm3 MPV 10.7 H (6-9.5) fl Gran % 77.6 H (36.0-66.0) % Eos # (Auto) 0.14 (0-0.5) Absolute Lymphs (auto) 0.97 L (1.0-4.6) Absolute Monos (auto) 0.75 (0.0-1.3) Lymphocytes % 11.6 L (24.0-44.0) % Monocytes % 9.0 (0.0-12.0) % Eosinophils % 1.7 (0.00-5.0) % Basophils % 0.1 (0.0-0.4) % Absolute Granulocytes 6.47 (1.4-6.9) Basophils # 0.01 (0-0.4) Sodium 140 (137-145) mmol/L Potassium 4.3 (3.5-5.1) mmol/L Chloride 105 (98-107) mmol/L Carbon Dioxide 28 (22-30) mmol/L Anion Gap 12.1 (5-15) MEQ/L BUN 10 (7-17) mg/dL Creatinine 0.52 (0.52-1.04) mg/dL Estimated GFR > 60.0 ML/MIN Glucose 90 (74-106) mg/dL Lactic Acid 1.2 (0.4-2.0) Calcium 9.4 (8.4-10.2) mg/dL Total Bilirubin 0.40 (0.2-1.3) mg/dL AST 34 (14-36) U/L ALT 43 H (0-35) U/L Alkaline Phosphatase 48 (38-126) U/L Serum Total Protein 8.4 H (6.3-8.2) g/dL Albumin 3.9 (3.5-5.0) g/dL Amylase 64 (30-110) U/L Lipase 16 L (23-300) U/L Urine Color (YELLOW) Urine Appearance (CLEAR) Urine pH (5-6) Ur Specific [place] (1.005-1.025) Urine Protein (Negative) Urine Ketones (NEGATIVE) Urine Blood (0-5) Vinny/ul Urine Nitrite (NEGATIVE) Urine Bilirubin (NEGATIVE) Urine Urobilinogen (0-1) mg/dL Ur Leukocyte Esterase (NEGATIVE) Urine WBC (Auto) (0-5) /HPF Urine RBC (Auto) (0-2) /HPF U Epithel Cells (Auto) (FEW) /HPF Urine Bacteria (Auto) (NEGATIVE) /HPF Urine Mucus (Auto) (NEGATIVE) /HPF Urine Culture Reflexed (NO) Urine Glucose (NEGATIVE) mg/dL Urine HCG, Qual (Negative) Urine Opiates Level (NEGATIVE) Ur Methadone (NEGATIVE) Urine Barbiturates (NEGATIVE) Ur Phencyclidine (PCP) (NEGATIVE) Urine Amphetamine (NEGATIVE) U Benzodiazepine Level (NEGATIVE) Urine Cocaine (NEGATIVE) Urine Marijuana (THC) (NEGATIVE) - Progress Progress: improved Progress Note: 07/29/19 15:11 ct abd/pelvis-right ureteral calculus in mid to distal ureter. minimal hydronephrosis on right Counseled pt/family regarding: lab results, diagnosis, need for follow-up, rad results - Departure Departure Disposition: Home (uti) Clinical Impression: UTI (urinary tract infection), Right ureteral calculus Condition: Stable Critical Care Time: No Referrals: RASHAD BOYKIN MD [Primary Care Provider] - Additional Instructions: drink plenty of fluids. use ibuprofen 600mg orally 3 times daily with food for pain. may also add tylenol for pain. Prescriptions: Ciprofloxacin [Cipro 500 MG] 500 mg PO BID #14 tablet
[2019-07-29] MEDS ORDERED: Sodium Chloride 0.9% 1000 ML 1,000 ML ONE (13:08)
[2019-07-29] MEDS ORDERED: TORAdol 30 mg Injection ONE (13:08)
[2019-07-29 13:29] LABS: Absolute Neutrophil Ct (ANC) 6.47 (1.4-6.9); BASOPHIL % 0.1 % (0.0-0.4); Basophil (Absolute #) 0.01 (0-0.4); Eosinophil % 1.7 % (0.00-5.0); Eosinophil (Absolute #) 0.14 (0-0.5); Hematocrit 40.2 % (35-47); Hemoglobin 12.9 gm/dl (12.0-16.0); Lymphocyte (Absolute #) 0.97 (1.0-4.6); Lymphocytes % 11.6 % (24.0-44.0); Mean Corpuscular Hemoglobin 32.7 pg (26-32); Mean Corpuscular Hgb Concent. 32.1 g/dl (32-36); Mean Platelet Volume 10.7 fl (6-9.5); Monocyte (Absolute #) 0.75 (0.0-1.3); Neutrophil % 77.6 % (36.0-66.0); Platelet Count 247 K/mm3 (150-450); Red Blood Count 3.94 M/mm3 (4.1-5.4); Red Cell Distribution Width 12.1 % (11.5-14.0); White Blood Count 8.3 K/mm3 (4.0-10.5)
[2019-07-29 13:32] LABS: ALBUMIN 3.9 g/dL (3.5-5.0); ALKALINE PHOSPHATASE 48 U/L (38-126); AMYLASE 64 U/L (30-110); ANION GAP 12.1 MEQ/L (5-15); BLOOD UREA NITROGEN 10 mg/dL (7-17); CHLORIDE 105 mmol/L (98-107); Calcium 9.4 mg/dL (8.4-10.2); Carbon Dioxide 28 mmol/L (22-30); Creatinine 1 0.52 mg/dL (0.52-1.04); Glucose 90 mg/dL (74-106); LIPASE 16 U/L (23-300); Potassium 4.3 mmol/L (3.5-5.1); SGOT/AST 34 U/L (14-36); SGPT/ALT 43 U/L (0-35); SODIUM 140 mmol/L (137-145); Total Protein 8.4 g/dL (6.3-8.2)
[2019-07-29 13:38] LABS: Appearance SLIGHTLY CLOUDY (CLEAR); Bacteria MODERATE /HPF (NEGATIVE); Bilirubin NEGATIVE (NEGATIVE); Blood MODERATE Ery/ul (0-5); Epithelial Cells RARE /HPF (FEW); Glucose NEGATIVE (NEGATIVE); Ketones NEGATIVE (NEGATIVE); Leukocyte Esterase SMALL (NEGATIVE); Mucus SLIGHT /HPF (NEGATIVE); Nitrite NEGATIVE (NEGATIVE); Protein,Urine Dip NEGATIVE (Negative); Specific Gravity 1.012 (1.005-1.025); Urobilinogen NEGATIVE mg/dL (0-1); WBC 26-50 /HPF (0-5)
[2019-07-29 13:50] LABS: Amphetamine,Urine NEGATIVE (NEGATIVE); Barbiturate,Urine NEGATIVE (NEGATIVE); Benzodiazepine,Urine NEGATIVE (NEGATIVE); Cocaine,Urine NEGATIVE (NEGATIVE); Methadone,Urine NEGATIVE (NEGATIVE); Opiate,Urine NEGATIVE (NEGATIVE); PCP,Urine NEGATIVE (NEGATIVE); THC,Urine NEGATIVE (NEGATIVE)
[2019-07-29] MEDS ORDERED: Cipro 500 MG ONE (15:15)
[2019-07-29] MEDS ORDERED: Cipro 500 MG PO ONE (15:15)
[2019-07-29 15:24] VITALS: BP 117/74; PULSE 84; O2SAT 99
--- NOTE | 2019-07-29 20:56 | XRAY ---
Indication: Abdomen pain 5 days. Multiple contiguous axial images obtained through the abdomen and pelvis without contrast as ordered. Comparison: July 03, 2018. Again 7 mm lingula and 10 mm left lower lobe noncalcified nodules, previously 10 mm and 13 mm respectively. No infiltrate or effusion. Noncontrasted stomach and bowel loops appear nonobstructed. Normal appendix. No free fluid/air. Again mild/moderate diffuse scattered fecal debris throughout including rectum. No free fluid/air. Interval cholecystectomy. Uterus again demonstrates IUD in situ. Remaining liver, pancreas, spleen, adrenal glands, kidneys, ureters, bladder, and aorta appear unremarkable for noncontrast exam. Osseous structures intact. Impression: 1. Again fecal stasis without obstruction. 2. Lingula and left lower lobe noncalcified nodules appear smaller. 3. Remaining CT abdomen/pelvis without contrast exam is negative. Comment: Preliminary interpretation was made by [facility] who reports possible 4 mm right ureter calculus with mild hydronephrosis which I do not appreciate. Right kidney demonstrates a extrarenal pelvis similar in appearance to comparison exam. CTDI 4.26
== END 2019-07-29 15:27 | disposition home or self-care (01) ==
LOC: ED 12:37
DX: N39.0 Urinary tract infection, site not specified (principal); N20.1 Calculus of ureter; N13.30 Unspecified hydronephrosis
CPT/HCPCS: 36000; 36415; 74176; 80053; 80307; 81001; 82150; 83605; 83690; 84703; 85025; 87077; 87086; 87186; 96360; 96374; 99284; J1885; A9270-GY

== ENCOUNTER 2019-11-20 14:52 | Emergency (ER) | payer SELFPAY ==
[2019-11-20] MEDS ORDERED: PERCOCET TABLET 5/325MG PO ONE (15:20)
[2019-11-20] MEDS ORDERED: NORCO 5/325 MG ONE (15:23)
[2019-11-20] MEDS ORDERED: PERCOCET TABLET 5/325MG ONE (15:25)
[2019-11-20] MEDS ORDERED: Rocephin 1000 MG INJ IM ONE (15:59)
[2019-11-20] MEDS ORDERED: Rocephin 1000 MG INJ ONE (16:10)
[2019-11-20] MEDS ORDERED: XYLOCAINE 1% HCL 20 ML MDV ONE (16:10)
--- NOTE | 2019-11-20 16:11 | XRAY ---
Indication: Soft tissue lump/erythema. Two-dimensional targeted soft tissue ultrasound anterior right axilla performed where there is mild subcutaneous soft tissue swelling/edema with hyperemic color Doppler flow favoring inflammatory/infectious process. No focal solid/cystic mass, abnormal fluid collection, or lymphadenopathy.
[2019-11-20 16:18] VITALS: BP 137/56; PULSE 108; O2SAT 99
--- NOTE | 2019-11-20 16:27 | ERPHSYRPT ---
- History of Present Illness Time Seen by Provider: 11/20/19 15:07 Source: patient Exam Limitations: no limitations Patient Subjective Stated Complaint: Abscess to right axilla Triage Nursing Assessment: Patient ambulated into ED and transferred self to bed. Patient A+O x3. Patient's skin pink, warm and dry. Patient complains of abscess to underneath right axilla that appeared 4 days ago. Patient popped area and stated yellow green drainage came out. Patient states she also plucked a black hair out of center. Patient has hard red area underneath axilla that is painful. Physician History: Abscess area. 4 to 5-day duration. Squeeze some pus out last night. Persistently painful and swollen. Started out with swelling under hair follicle. Fever or any systemic symptoms. Timing/Duration: day(s) (5) Quality: painful Severity: moderate Location: axillary (R) Possible Causes: no cause identified Associated Symptoms: change in skin texture, swelling/mass/lumps Allergies/Adverse Reactions: No Known Drug Allergies Allergy (Verified 11/20/19 15:04) Hx Tetanus, Diphtheria Vaccination/Date Given: Yes Hx Influenza Vaccination/Date Given: Yes Hx Pneumococcal Vaccination/Date Given: No Immunizations Up to Date: Yes Travel Risk - International Travel Have you traveled outside of the country in past 3 weeks: No Have you or anyone close to you been diagnosed with or: No Do your reside in a community with a known COVID-19 case?: Yes If Yes where:: [facility] - Coronavirus Screening Has patient experienced Coronavirus symptoms: No - Review of Systems Constitutional: No Fever, No Chills Eyes: No Symptoms Ears, Nose, & Throat: No Symptoms Respiratory: No Cough, No Dyspnea Cardiac: No Chest Pain, No Edema, No Syncope Abdominal/Gastrointestinal: No Abdominal Pain, No Nausea, No Vomiting, No Diarrhea Genitourinary Symptoms: No Dysuria Musculoskeletal: No Back Pain, No Neck Pain Skin: Cellulitis, Rash Neurological: No Dizziness, No Focal Weakness, No Sensory Changes Psychological: No Symptoms Endocrine: No Symptoms All Other Systems: Reviewed and Negative - Past Medical History Pertinent Past Medical History: No (tonsillectomy, SVD2) Neurological History: No Pertinent History ENT History: No Pertinent History Cardiac History: No Pertinent History Respiratory History: No Pertinent History Endocrine Medical History: No Pertinent History Musculoskeletal History: No Pertinent History GI Medical History: No Pertinent History History: No Pertinent History Psycho-Social History: No Pertinent History Female Reproductive Disorders: No Pertinent History - Past Surgical History Past Surgical History: Yes (tonsillectomy) Neuro Surgical History: No Pertinent History Cardiac: No Pertinent History Respiratory: No Pertinent History Gastrointestinal: Cholecystectomy Genitourinary: No Pertinent History Musculoskeletal: No Pertinent History Female Surgical History: No Pertinent History Other Surgical History: Toniliectomy - Social History Smoking Status: Current every day smoker How long have you smoked: 4yrs Exposure to second hand smoke: Yes Drug Use: none Patient Lives Alone: No - Female History Hx Last Menstrual Period: Mirena Hx Now: No - Nursing Vital Signs Nursing Vital Signs: Initial Vital Signs Temperature 97.9 F 11/20/19 15:04 Pulse Rate 109 H 11/20/19 15:04 Respiratory Rate 18 11/20/19 15:04 Blood Pressure 124/78 11/20/19 15:04 O2 Sat by Pulse Oximetry 100 11/20/19 15:04 Pain Scale Pain Intensity 5 - Physical Exam General Appearance: no apparent distress, alert Eye Exam: PERRL/EOMI, eyes nml inspection Ears, Nose, Throat Exam: normal ENT inspection, pharynx normal, moist mucous membranes Neck Exam: normal inspection, non-tender, supple, full range of motion Respiratory Exam: normal breath sounds, lungs clear, No respiratory distress Cardiovascular Exam: regular rate/rhythm, normal heart sounds Gastrointestinal/Abdomen Exam: soft, mass, No tenderness Back Exam: normal inspection, normal range of motion, No CVA tenderness, No vertebral tenderness Extremity Exam: normal inspection, normal range of motion, tenderness ( angterior right shoulder area.) Neurologic Exam: alert, oriented x 3, cooperative, normal mood/affect, sensation nml, No motor deficits Skin Exam: other (large indurated erythematous 8x5cm lesion anterior axillary right sided) SpO2: 99 - Course Nursing assessment & vital signs reviewed: Yes - Radiology Ultrasound Exam Right Other Ultrasound: discussed w/radiologist, Other (No abscess, cellulitis appearance) Ordered Tests: Active Orders 24 hr Category Date Time Status EXTREMITY NON VASCULAR [US] Routine Exams 11/20/19 15:51 Completed Medication Summary Discontinued Medications Generic Name Dose Route Start Last Admin Trade Name Freq PRN Reason Stop Dose Admin Hydrocodone Bitart/Acetaminophen Confirm 11/20/19 15:23 [place] 5/325 Mg Administered 11/20/19 15:24 Dose 1 tab .ROUTE .STK-MED ONE Ceftriaxone Sodium 1,000 mg 11/20/19 15:59 11/20/19 16:11 Rocephin 1000 Mg Inj IM 11/20/19 16:00 1,000 mg STAT ONE Administration Ceftriaxone Sodium Confirm 11/20/19 16:10 Rocephin 1000 Mg Inj Administered 11/20/19 16:11 Dose 1,000 mg .ROUTE .STK-MED ONE Lidocaine HCl Confirm 11/20/19 16:10 Xylocaine 1% Hcl 20 Ml Mdv Administered 11/20/19 16:11 Dose 3 ml .ROUTE .STK-MED ONE Oxycodone/Acetaminophen 1 tab 11/20/19 15:20 11/20/19 15:25 Percocet Tablet 5/325mg PO 11/20/19 15:21 1 tab STAT ONE Administration Oxycodone/Acetaminophen Confirm 11/20/19 15:25 Percocet Tablet 5/325mg Administered 11/20/19 15:26 Dose 1 tab .ROUTE .STK-MED ONE - Progress Progress: improved Progress Note: 11/20/19 16:32 Ultrasound did not reveal any abscess or fluctuant/fluid. Would not need I&D. Rocephin IM. Prescription for home. Will discharge. Counseled pt/family regarding: diagnosis, need for follow-up, rad results - Departure Departure Disposition: Home Clinical Impression: Cellulitis and abscess of upper extremity Condition: Stable Critical Care Time: No Referrals: RASHAD BOYKIN MD [Primary Care Provider] - Instructions: Skin Abscess Additional Instructions: Monitor symptoms closely. Take medication as prescribed. Follow-up with PCP in 2 to 3 days for recheck. Return to ER if worse. Prescriptions: Hydrocodone/APAP 5/325 [[place] 5/325 mg] 1 each PO Q6H PRN PRN #10 tablet MDD 4 tabs PRN Reason: Pain Smz/Tmp Ds Tablet [Bactrim Ds Tablet] 1 udtab PO BID 10 Days #20 tablet
== END 2019-11-20 16:39 | disposition home or self-care (01) ==
LOC: ED 14:52
DX: L03.111 Cellulitis of right axilla (principal); L02.411 Cutaneous abscess of right axilla; Z72.0 Tobacco use
CPT/HCPCS: 76881; 96372; 99284; J0696; A9270-GY

== ENCOUNTER 2020-03-07 02:21 | Emergency (ER) | payer MEDICAID ==
[2020-03-07] MEDS ORDERED: XYLOCAINE 1% HCL 20 ML MDV ONE (02:34)
[2020-03-07] MEDS ORDERED: MORPHINE SULFATE 2 MG INJ IV ONE (02:44)
[2020-03-07] MEDS ORDERED: Zofran 4 MG/2 ML VIAL IV ONE (02:44)
--- NOTE | 2020-03-07 02:44 | ERPHSYRPT ---
- History of Present Illness Time Seen by Provider: 03/07/20 02:35 Source: patient Exam Limitations: intoxication Physician History: This is a 19-year-old white female whose tetanus status is up-to-date and she presents to the emergency department with right thigh laceration. Patient was attempting to jump over a fence and did not clear it. This was accidental laceration. Patient has been consuming alcohol per her report. Timing/Duration: today Quality: painful Severity: moderate Location: extremities (Right inner thigh) Associated Symptoms: other (Laceration to right inner thigh) Allergies/Adverse Reactions: No Known Drug Allergies Allergy (Verified 03/07/20 02:30) Hx Tetanus, Diphtheria Vaccination/Date Given: Yes Hx Influenza Vaccination/Date Given: Yes Hx Pneumococcal Vaccination/Date Given: No Travel Risk - International Travel Have you traveled outside of the country in past 3 weeks: No - Coronavirus Screening Are you exhibiting any of the following symptoms?: No Close contact with a COVID-19 positive Pt in past 14-21 Days: No - Review of Systems Constitutional: No Symptoms Eyes: No Symptoms Ears, Nose, & Throat: No Symptoms Respiratory: No Symptoms Cardiac: No Symptoms Abdominal/Gastrointestinal: No Symptoms Genitourinary Symptoms: No Symptoms Musculoskeletal: No Symptoms Skin: Other Neurological: No Symptoms (Laceration to right inner thigh) Psychological: No Symptoms Endocrine: No Symptoms Hematologic/Lymphatic: No Symptoms Immunological/Allergic: No Symptoms All Other Systems: Reviewed and Negative - Past Medical History Pertinent Past Medical History: No (tonsillectomy, SVD2) Neurological History: No Pertinent History ENT History: No Pertinent History Cardiac History: No Pertinent History Respiratory History: No Pertinent History Endocrine Medical History: No Pertinent History Musculoskeletal History: No Pertinent History GI Medical History: No Pertinent History History: No Pertinent History Psycho-Social History: No Pertinent History Female Reproductive Disorders: No Pertinent History - Past Surgical History Past Surgical History: Yes (tonsillectomy) Neuro Surgical History: No Pertinent History Cardiac: No Pertinent History Respiratory: No Pertinent History Gastrointestinal: Cholecystectomy Genitourinary: No Pertinent History Musculoskeletal: No Pertinent History Female Surgical History: No Pertinent History Other Surgical History: Toniliectomy - Social History Smoking Status: Current every day smoker How long have you smoked: 4yrs Exposure to second hand smoke: Yes Drug Use: none Patient Lives Alone: No - Nursing Vital Signs Nursing Vital Signs: Initial Vital Signs Temperature 98.2 F 03/07/20 02:35 Pulse Rate 115 H 03/07/20 02:35 Respiratory Rate 26 H 03/07/20 02:35 Blood Pressure 141/84 03/07/20 02:35 O2 Sat by Pulse Oximetry 98 03/07/20 02:35 Pain Scale Pain Intensity 10 - Physical Exam General Appearance: mild distress, alert, anxiety, other Eye Exam: PERRL/EOMI (Tearful), eyes nml inspection Ears, Nose, Throat Exam: normal ENT inspection, moist mucous membranes Neck Exam: normal inspection, non-tender, supple, full range of motion Respiratory Exam: normal breath sounds, lungs clear, airway intact, No chest tenderness, No respiratory distress Cardiovascular Exam: regular rate/rhythm, normal heart sounds, normal peripheral pulses Gastrointestinal/Abdomen Exam: No tenderness Pelvic Exam: not done Rectal Exam: not done Back Exam: normal inspection, normal range of motion, No CVA tenderness, No vertebral tenderness Neurologic Exam: alert, oriented x 3, cooperative, infertility nurse II-XII nml as tested, sensation nml, intoxicated appearance Skin Exam: laceration (7 cm x 2 cm. Open wound to subcutaneous tissue level. No foreign body. No active bleeding.) SpO2 Interpretation: normal O2 Delivery: Room Air Procedures - Laceration/Wound Repair Right Anterior Medial Thigh Wound Location: Right (Anteromedial thigh) Wound Length (cm): 7 Wound's Depth, Shape: superficial (None), linear, into subcut Wound Explored: clean (No foreign body in bloodless field to base) Irrigated: Yes (Several 10 mL of Hibiclens/sterile water solution) Hibiclens Prep: Yes Anesthesia: 1% Lidocaine Volume Anesthetic (ccs): 10 Wound Repaired With: sutures, Luz Suture Size/Type: 3-0, prolene (+8 luz) Number of Sutures: 3 Layer Closure?: No Sterile Dressing Applied?: Yes Progress: 03/07/20 03:15 The patient received 2 mg of intravenous morphine, half milligram of intravenous Ativan and 4 mg of intravenous Zofran. The right thigh laceration site was prepped with Betadine solution. 10 mL's of 1% lidocaine plain was used to anesthetize the skin of this laceration site. Next the laceration site, subcutaneous tissue of the laceration and the surrounding area was prepped with a mixture of Hibiclens solution and sterile water. The site was dried then three 3-0 Prolene sutures were placed in a simple interrupted fashion to approximate the skin edges. Next,eight skin lzu were used to close the remainder of the skin edges. Bacitracin ointment was applied. Next a nonstick gauze followed by pressure dressing was used to cover the wound. - Course Nursing assessment & vital signs reviewed: Yes Ordered Tests: Active Orders 24 hr Category Date Time Status Wound Care STAT Care 03/07/20 02:46 Active Medication Summary Discontinued Medications Generic Name Dose Route Start Last Admin Trade Name Travisq PRN Reason Stop Dose Admin Lidocaine HCl Confirm 03/07/20 02:34 Xylocaine 1% Hcl 20 Ml Mdv Administered 03/07/20 02:35 Dose 10 ml .ROUTE .STK-MED ONE Lorazepam 0.5 mg 03/07/20 02:45 03/07/20 02:50 Ativan 2 Mg/1 Ml Vial IV 03/07/20 02:46 0.5 mg STAT ONE Administration Lorazepam Confirm 03/07/20 02:45 Ativan 2 Mg/1 Ml Vial Administered 03/07/20 02:46 Dose 2 mg .ROUTE .STK-MED ONE Morphine Sulfate 2 mg 03/07/20 02:44 03/07/20 02:49 Morphine Sulfate 2 Mg Inj IV 03/07/20 02:45 2 mg STAT ONE Administration Morphine Sulfate Confirm 03/07/20 02:46 Morphine Sulfate 2 Mg Inj Administered 03/07/20 02:47 Dose 2 mg .ROUTE .STK-MED ONE Ondansetron HCl 4 mg 03/07/20 02:44 03/07/20 02:49 Zofran 4 Mg/2 Ml Vial IV 03/07/20 02:45 4 mg STAT ONE Administration Ondansetron HCl Confirm 03/07/20 02:45 Zofran 4 Mg/2 Ml Vial Administered 03/07/20 02:46 Dose 4 mg .ROUTE .STK-MED ONE - Progress Progress: improved, pain not gone completely, re-examined Progress Note: 03/07/20 03:18 Patient tolerated the procedure well. See procedure note. Counseled pt/family regarding: diagnosis, need for follow-up - Departure Departure Disposition: Home Clinical Impression: Laceration of thigh, right Condition: Stable Critical Care Time: No Referrals: RASHAD BOYKIN MD [Primary Care Provider] - Additional Instructions: Keep the current dressing in place and dry until the morning of March 08, 2020. After removal of the dressing, may wash the site daily with soap and water then apply a thin layer of antibiotic ointment to the site each day. Cover the wound with nonstick gauze. Suture and staple removal in 8 to 10 days. Take medication as prescribed. Do not use any illicit drugs or alcohol while taking your pain medication and antibiotics Prescriptions: Hydrocodone/APAP 5/325 [[place] 5/325 mg] 1 each PO Q8H PRN PRN #6 tablet MDD 3 PRN Reason: Pain Cephalexin Mh 500 mg [Keflex 500 mg] 500 mg PO TID #15 capsule
[2020-03-07] MEDS ORDERED: Zofran 4 MG/2 ML VIAL ONE (02:45)
[2020-03-07] MEDS ORDERED: Ativan 2 MG/1 ML VIAL IV ONE (02:45)
[2020-03-07] MEDS ORDERED: Ativan 2 MG/1 ML VIAL ONE (02:45)
[2020-03-07] MEDS ORDERED: MORPHINE SULFATE 2 MG INJ ONE (02:46)
[2020-03-07] MEDS ORDERED: XYLOCAINE 1% HCL 20 ML MDV IJ ONE (03:14)
[2020-03-07] MEDS ORDERED: KEFLEX 500 MG PO ONE (03:17)
[2020-03-07] MEDS ORDERED: KEFLEX 500 MG ONE (03:18)
[2020-03-07 03:36] VITALS: BP 119/73; PULSE 110; O2SAT 100
== END 2020-03-07 03:36 | disposition home or self-care (01) ==
LOC: ED 02:21
DX: S71.111A Laceration without foreign body, right thigh, initial encounter (principal); W18.09XA Striking against other object with subsequent fall, initial encounter; F17.210 Nicotine dependence, cigarettes, uncomplicated; F10.129 Alcohol abuse with intoxication, unspecified
CPT/HCPCS: 96372; 96374; 96375; 99284; J2060; J2270; J2405; A9270-GY

== ENCOUNTER 2020-12-02 06:37 | Emergency (ER) | payer OTHER ==
[2020-12-02] MEDS ORDERED: DELTASONE 20 MG PO ONE (07:08)
--- NOTE | 2020-12-02 07:14 | ERPHSYRPT ---
- History of Present Illness Time Seen by Provider: 12/02/20 06:45 Source: patient Exam Limitations: no limitations Patient Subjective Stated Complaint: pt c/o rash x4 days, itching Triage Nursing Assessment: pt c/o rash x4 days, with lots of itching. Pt states, "It keeps spreading more and more". Pt c/o rash to back, arms, neck, behind knees. Light pink rash noted to arms and behind knees. No rash noted to back or neck. Physician History: Patient is a 20-year-old female presents to our emergency department with complaints of a papular rash to her back arms posterior knees and upper chest. Symptoms started approximately 4 days ago. Patient states she was just [facility] from [facility] living. Patient states that the night prior to her release she wrapped herself with a blanket. Patient noticed the following morning the symptoms/pruritus began. After discharge she went mushroom hunting. She believes she may have been exposed to poison sameera but is not 100% sure. Patient denies breathing difficulty. No intraoral lesions. No wheezing. No shortness of breath. No chest pain. No abdominal cramping. No diarrhea. Symptoms are mild to moderate in intensity. Patient has been taking Benadryl for her symptoms and states that her symptoms have significantly improved but not resolved. No worsening factors. Patient is otherwise healthy. Patient denies the possibility of . Patient is on the Mirena. Patient does not want to provide a urine sample at this time. But patient wants her steroids and does not want to provide a urine sample as she states it is not necessary. Timing/Duration: day(s) (4 days ago) Severity: moderate Modifying Factors: Improves With: other (Benadryl) Associated Symptoms: denies symptoms Allergies/Adverse Reactions: No Known Drug Allergies Allergy (Verified 12/02/20 06:47) Hx Tetanus, Diphtheria Vaccination/Date Given: Yes Hx Influenza Vaccination/Date Given: No Hx Pneumococcal Vaccination/Date Given: No Immunizations Up to Date: Yes Travel Risk - International Travel Have you traveled outside of the country in past 3 weeks: No - Coronavirus Screening Are you exhibiting any of the following symptoms?: No Close contact with a COVID-19 positive Pt in past 14-21 Days: No - Vaccine Status Have you recieved a Covid-19 vaccination: No - Review of Systems Constitutional: No Symptoms, No Fever, No Chills Eyes: No Symptoms Ears, Nose, & Throat: No Symptoms Respiratory: No Symptoms, No Cough, No Dyspnea Cardiac: No Symptoms, No Chest Pain, No Edema, No Syncope Abdominal/Gastrointestinal: No Symptoms, No Abdominal Pain, No Nausea, No Vomiting, No Diarrhea Genitourinary Symptoms: No Symptoms, No Dysuria Musculoskeletal: No Symptoms, No Back Pain, No Neck Pain Skin: No Symptoms, No Rash Neurological: No Symptoms, No Dizziness, No Focal Weakness, No Sensory Changes Psychological: No Symptoms Endocrine: No Symptoms Hematologic/Lymphatic: No Symptoms Immunological/Allergic: No Symptoms All Other Systems: Reviewed and Negative - Past Medical History Pertinent Past Medical History: Yes (tonsillectomy, SVD2) Neurological History: No Pertinent History ENT History: No Pertinent History Cardiac History: No Pertinent History Respiratory History: No Pertinent History Endocrine Medical History: No Pertinent History Musculoskeletal History: No Pertinent History GI Medical History: Gallbladder Disease History: No Pertinent History Psycho-Social History: No Pertinent History Female Reproductive Disorders: No Pertinent History - Past Surgical History Past Surgical History: Yes (tonsillectomy) Neuro Surgical History: No Pertinent History Cardiac: No Pertinent History Respiratory: No Pertinent History Gastrointestinal: Cholecystectomy Genitourinary: No Pertinent History Musculoskeletal: No Pertinent History Female Surgical History: No Pertinent History Other Surgical History: Toniliectomy - Social History Smoking Status: Current every day smoker How long have you smoked: 6 yrs Exposure to second hand smoke: Yes Drug Use: none Patient Lives Alone: No - Female History Hx Now: No - Nursing Vital Signs Nursing Vital Signs: Initial Vital Signs Temperature 97.9 F 12/02/20 06:38 Pulse Rate 100 H 12/02/20 06:38 Respiratory Rate 18 12/02/20 06:38 Blood Pressure 146/93 12/02/20 06:38 O2 Sat by Pulse Oximetry 98 12/02/20 06:38 Pain Scale Pain Intensity 0 - Physical Exam General Appearance: no apparent distress, alert Eye Exam: PERRL/EOMI, eyes nml inspection Ears, Nose, Throat Exam: normal ENT inspection, TMs normal, pharynx normal, moist mucous membranes Neck Exam: normal inspection, non-tender, supple, full range of motion Respiratory Exam: normal breath sounds, lungs clear, airway intact, No respiratory distress, No prolonged expirations, No wheezing, No stridor Cardiovascular Exam: regular rate/rhythm, normal heart sounds, normal peripheral pulses Gastrointestinal/Abdomen Exam: soft, normal bowel sounds, No tenderness, No mass Back Exam: normal inspection, normal range of motion, No CVA tenderness, No vertebral tenderness Extremity Exam: normal inspection, normal range of motion, pelvis stable Neurologic Exam: alert, oriented x 3, cooperative, normal mood/affect, nml cerebellar function, nml station & gait, sensation nml, No motor deficits Skin Exam: normal color, warm, dry, rash, other (Fine papular rash on arms upper back upper chest and posterior knees. Overlying soft tissue intact. No open or draining lesions. No superimposed cellulitis.) Lymphatic Exam: No adenopathy SpO2 Interpretation: normal SpO2: 100 O2 Delivery: Room Air - Course Nursing assessment & vital signs reviewed: Yes Ordered Tests: Medication Summary Discontinued Medications Generic Name Dose Route Start Last Admin Trade Name Freq PRN Reason Stop Dose Admin Prednisone 60 mg 12/02/20 07:08 12/02/20 07:18 Deltasone 20 Mg PO 12/02/20 07:09 60 mg STAT ONE Administration Prednisone Confirm 12/02/20 07:17 Deltasone 20 Mg Administered 12/02/20 07:18 Dose 60 mg .ROUTE .STK-MED ONE - Progress Progress: improved Progress Note: Patient reassessed. She feels well. Patient otherwise has no complaints. Patient received a dose of prednisone in our ED. A prescription for the same will be provided. Prednisone on treatment time will be a total of 4 days. Vital stable. Patient is mildly tachycardic. Patient states this is likely due to discomfort from itching. Patient otherwise has no complaints. Patient agrees to follow-up with her primary care doctor within 48 hours for reevaluation. Patient is a smoker. Patient states she smoked cigarettes prior to arrival. Portions of this note were created with voice recognition technology. There may be grammatical, spelling, punctuation or sound alike errors. 12/02/20 07:27 12/02/20 07:28 Counseled pt/family regarding: diagnosis, need for follow-up, smoking cessation - Departure Departure Disposition: Home Clinical Impression: Pruritic rash Condition: Stable Critical Care Time: No Referrals: RASHAD BOYKIN MD [Primary Care Provider] - Additional Instructions: Discharge/Care Plan HELGA MEHTA was seen on 12/02/20 in the Emergency Room. The patient was counseled regarding Diagnosis,Lab results, Imaging studies, need for follow up and when to return to the Emergency Room. Prescriptions given: Discharge Note I have spoken with the patient and/or caregivers. I have explained the patient's condition, diagnosis and treatment plan based on the information available to me at this time. I have answered the patient's and/or caregiver's questions and addressed any concerns. The patient and/or caregivers have as good understanding of the patient's diagnosis, condition and treatment plan as can be expected at this point. The vital signs have been stable. The patient's condition is stable and appropriate for discharge from the emergency department. The patient will pursue further outpatient evaluation with the primary care physician or other designated or consulting physician as outlined in the discharge instructions. The patient and/or caregivers are agreeable to this plan of care and follow-up instructions have been explained in detail. The patient and/or caregivers have received these instruction. The patient/and or caregivers are aware that any significant change in condition or worsening of symptoms should prompt an immediate return to this or the closest emergency department or call 911. Prescriptions: Prednisone 10 mg [Deltasone 10 mg] 40 mg PO DAILY 3 Days #12 tablet
[2020-12-02] MEDS ORDERED: DELTASONE 20 MG ONE (07:17)
[2020-12-02 07:41] VITALS: BP 131/81; PULSE 102; O2SAT 98
== END 2020-12-02 07:41 | disposition home or self-care (01) ==
LOC: ED 06:37
DX: R21 Rash and other nonspecific skin eruption (principal)
CPT/HCPCS: 99283; A9270-GY